=== PATIENT | male | born 2005 | race Hispanic/Latino ===

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

== ENCOUNTER 2024-01-25 16:41 | Emergency (ER) | payer OTHER ==
[~2024-01-25] VITALS: Ht 185.4 cm; Wt 108.9 kg
[2024-01-25 17:15] VITALS: BP 117/79; PULSE 58; RESP 16
[2024-01-25 17:34] LABS: BASOPHILS # (AUTO) 0.06 K/uL (0.00-0.20); BASOPHILS % (AUTO) 0.9 % (0.0-5.0); EOSINOPHILS # (AUTO) 0.27 K/uL (0.00-0.70); EOSINOPHILS % (AUTO) 4.2 % (0.0-8.0); HEMATOCRIT 50.5 % (42-54); IMMATURE GRANULOCYTE ABSOLUTE 0.02 K/uL (0-1); LYMPHOCYTES # (AUTO) 1.6 K/uL (1.0-4.8); LYMPHOCYTES % (AUTO) 25.3 % (21.0-51.0); MEAN CORPUSCULAR HEMOGLOBIN 29.4 pg (27.0-33.0); MEAN CORPUSCULAR HGB CONC 33.7 g/dL (32.0-36.0); MEAN CORPUSCULAR VOLUME 87.4 fL (80-100); MONOCYTES # (AUTO) 0.6 K/uL (0.1-1.0); MONOCYTES % (AUTO) 9.2 % (3.0-13.0); NEUTROPHILS # (AUTO) 3.9 K/uL (1.8-7.7); NEUTROPHILS % (AUTO) 60.1 % (40.0-77.0); PLATELET COUNT (AUTO) 302 K/uL (130-400); RED BLOOD CELL COUNT(AUTO) 5.78 MIL/uL (4.50-6.20); RED CELL DISTRIBUTION WIDTH 11.9 % (11.0-15.5); WHITE BLOOD COUNT (AUTO) 6.4 K/uL (4.8-10.8)
[2024-01-25 17:44] LABS: CREATININE 0.9 mg/dL (0.5-1.3); POTASSIUM 4.2 mmol/L (3.5-5.1)
[2024-01-25 17:46] LABS: APPEARANCE,URINE CLEAR (CLEAR); BILIRUBIN,URINE NEGATIVE (NEGATIVE); COLOR,URINE LIGHT-YELLOW (YELLOW); GLUCOSE, URINE (UA) NEGATIVE (NEGATIVE); KETONES,URINE NEGATIVE (NEGATIVE); LEUKOCYTE ESTERASE ,URINE NEGATIVE Leu/uL (NEGATIVE); NITRATE,URINE NEGATIVE (NEGATIVE); OCCULT BLOOD,URINE SMALL (NEGATIVE); PH,URINE 5.5 (5.0-8.0); PROTEIN,URINE NEGATIVE (NEGATIVE); UROBILINOGEN,URINE 0.2 mg/dL (0.2-1.0)
[2024-01-25 17:48] LABS: ALBUMIN 4.2 g/dL (3.5-5.0); BILIRUBIN,TOTAL 0.5 mg/dL (0.2-1.0); TOTAL PROTEIN, SERUM 8.3 g/dL (6.0-8.3)
[2024-01-25 17:55] LABS: BACTERIA,URINE Few /HPF (None Seen); SQUAMOUS EPITHELIAL CELL,UR Moderate /HPF (0-2); WBC,URINE None Seen /HPF (0-1)
[2024-01-25] MEDS ORDERED: AZIT250T9 PO (19:03)
[2024-01-25] MEDS ORDERED: ONDA22I IM (19:03)
== END 2024-01-25 20:11 | disposition home or self-care (01) ==
LOC: EDH 16:41
DX: K52.9 Noninfective gastroenteritis and colitis, unspecified (principal)
CPT/HCPCS: 36415; 74176; 80053; 81001; 83690; 85025

== ENCOUNTER 2024-02-25 16:31 | Emergency (ER) | payer OTHER ==
[~2024-02-25] VITALS: Ht 185.4 cm; Wt 108.9 kg
[~2024-02-25 16:31] MED LIST: AZIT250T9 PO; ONDA22I IM
[2024-02-25 18:55] LABS: BASOPHILS # (AUTO) 0.02 K/uL (0.00-0.20); BASOPHILS % (AUTO) 0.4 % (0.0-5.0); EOSINOPHILS # (AUTO) 0.07 K/uL (0.00-0.70); EOSINOPHILS % (AUTO) 1.3 % (0.0-8.0); HEMATOCRIT 46.6 % (42-54); IMMATURE GRANULOCYTE ABSOLUTE 0.01 K/uL (0-1); LYMPHOCYTES # (AUTO) 1.5 K/uL (1.0-4.8); LYMPHOCYTES % (AUTO) 27.4 % (21.0-51.0); MEAN CORPUSCULAR HEMOGLOBIN 29.7 pg (27.0-33.0); MEAN CORPUSCULAR HGB CONC 34.1 g/dL (32.0-36.0); MEAN CORPUSCULAR VOLUME 86.9 fL (80-100); MONOCYTES % (AUTO) 18.4 % (3.0-13.0); NEUTROPHILS # (AUTO) 2.8 K/uL (1.8-7.7); NEUTROPHILS % (AUTO) 52.3 % (40.0-77.0); PLATELET COUNT (AUTO) 270 K/uL (130-400); RED BLOOD CELL COUNT(AUTO) 5.36 MIL/uL (4.50-6.20); RED CELL DISTRIBUTION WIDTH 11.9 % (11.0-15.5); WHITE BLOOD COUNT (AUTO) 5.3 K/uL (4.8-10.8)
[2024-02-25 19:00] LABS: APPEARANCE,URINE CLEAR (CLEAR); BILIRUBIN,URINE NEGATIVE (NEGATIVE); COLOR,URINE YELLOW (YELLOW); GLUCOSE, URINE (UA) NEGATIVE (NEGATIVE); KETONES,URINE NEGATIVE (NEGATIVE); LEUKOCYTE ESTERASE ,URINE NEGATIVE Leu/uL (NEGATIVE); NITRATE,URINE NEGATIVE (NEGATIVE); OCCULT BLOOD,URINE NEGATIVE (NEGATIVE); PH,URINE 5.5 (5.0-8.0); PROTEIN,URINE 30 mg/dL (NEGATIVE); UROBILINOGEN,URINE 0.2 mg/dL (0.2-1.0)
[2024-02-25 19:05] LABS: CREATININE 0.9 mg/dL (0.5-1.3)
[2024-02-25 19:05] LABS: AMPHET/METH SCREEN,URINE NEGATIVE (NEGATIVE); BARBITURATE SCREEN, URINE NEGATIVE (NEGATIVE); BENZODIAZEPINES SCREEN,URINE NEGATIVE (NEGATIVE); CANNABINOID SCREEN,URINE POSITIVE (NEGATIVE); COCAINE SCREEN,URINE NEGATIVE (NEGATIVE); OPIATE SCREEN,URINE NEGATIVE (NEGATIVE); PHENCYCLIDINE SCREEN,URINE NEGATIVE (NEGATIVE)
[2024-02-25 19:08] LABS: ADD UA MICROSCOPIC YES
[2024-02-25 19:14] LABS: MUCUS,URINE FEW LPF (None Seen); SQUAMOUS EPITHELIAL CELL,UR FEW /HPF (0-2); WBC,URINE 0-1 /HPF (0-1)
[2024-02-25 19:24] LABS: ALBUMIN 4.3 g/dL (3.5-5.0); BILIRUBIN,TOTAL 0.4 mg/dL (0.2-1.0); TOTAL PROTEIN, SERUM 8.5 g/dL (6.0-8.3)
[2024-02-25] MEDS: 0.9%NACL 1000ML 2,397 ML IV STA (19:56)
[2024-02-25] MEDS: IBUPROFEN 800 MG TAB PO STA (19:57)
[2024-02-25 21:24] VITALS: BP 136/79; PULSE 92; RESP 20; O2SAT 99
== END 2024-02-25 21:25 | disposition home or self-care (01) ==
LOC: EDH 16:31
DX: M94.0 Chondrocostal junction syndrome [Tietze] (principal); F12.90 Cannabis use, unspecified, uncomplicated; R74.8 Abnormal levels of other serum enzymes; I10 Essential (primary) hypertension; Z79.899 Other long term (current) drug therapy; Z98.890 Other specified postprocedural states
CPT/HCPCS: 99285; 71045; 82550; 84484 ×2; 80053; 80305; 85025; 36415; 93005; 81001; J7030

== ENCOUNTER 2024-12-20 12:08 | Emergency (ER) | payer OTHER ==
[~2024-12-20] VITALS: Ht 185.4 cm; Wt 113.4 kg
[2024-12-20] MEDS: Solu-medROL 40MG VIAL IM ONE (12:45)
--- NOTE | 2024-12-20 12:53 | HMCIMG ---
CHEST 1VW HISTORY: Cough COMPARISON: 02/25/2024 FINDINGS: A frontal projection of the chest was obtained. No acute pulmonary infiltrates is seen. The heart is normal in size. Prominent interstitial markings are seen. Degenerative changes are seen IMPRESSION: 1. No acute pulmonary infiltrate is seen.
[2024-12-20 13:02] LABS: RAPID GROUP A STREP negative (NEGATIVE)
--- NOTE | 2024-12-20 13:05 | ERN ---
General Chief Complaint: Flu Symptoms Stated Complaint: CHEST PAIN,CONGESTION,MULTIPLE COMPLAINTS Time Seen by MD: 12:10 History of Present Illness Initial Comments 19-year-old male who presents for flu-like illness. Patient reports three or four days ago he had a fever, sore throat cough congestion. Fevers have subsided but he continues with sinus congestion and cough. He reports some pleuritic type chest discomfort earlier today due to the coughing. No respiratory distress. No other symptoms. Allergies: Coded Allergies: No Known Allergies (Unverified Allergy, Unknown, 01/25/24) Home Meds Active Scripts Ondansetron HCl (Zofran) 4 Mg/2 Ml Inj, 4 MG IM BID for 7 Days, #14 ML Prov:VIDHYA YOUSSEF 01/25/24 Azithromycin (Azithromycin) 250 Mg Tablet, 250 MG PO DAILY for 5 Days, #5 TAB Prov:VIDHYA YOUSSEF 01/25/24 Past Medical History Past Medical History: No Pertinent History Medical History Other: GASTRITIS, FATTY LIVER Past Surgical History: None ROS Dictation CONSTITUTIONAL: No chills, no fever, no weakness, no diaphoresis, no malaise. HEAD/FACE: No signs of trauma. EENT: No eye pain, no blurred vision, no tearing, no double vision, no ear pain, no ear discharge, no nose pain, no nasal congestion, no throat pain, no throat swelling, no mouth pain. RESPIRATORY: Cough CARDIOVASCULAR: No chest pain, no edema, no palpitations, no syncope. GASTROINTESTINAL/ABDOMINAL: No abdominal pain, no constipation, no diarrhea, no nausea, no vomiting. GENITOURINARY: No abnormal discharge, no dysuria, no frequent urination, no hematuria. No complaints of pain in the genitals. MUSCULOSKELETAL: No back pain, no gout, no joint pain, no joint swelling, no muscle pain, no muscle stiffness, no neck pain. INTEGUMENTARY: No change in color, no change in hair/nails, no dryness, no lesion, no lumps, no rash. NEUROLOGICAL/PSYCH: No anxiety, not depressed, no emotional problem, no headache, no numbness, no pre-existing deficit, no history of seizures, no tremors, no weakness. HEMATOLOGIC/LYMPHATIC: Not anemic, no history of blood clots, no apparent bleeding, no bruising, glands not swollen. All Systems Negative, Except as Noted. Physical Exam Physical Exam Dictation VITAL SIGNS: Reviewed. GENERAL APPEARANCE: Alert, oriented x3, no acute distress. HEAD AND FACE: Non-traumatic. EYES: PERRL, pink conjunctivas, eyelid no trauma, anterior chamber clear. EARS: Pinnas intact and no signs of trauma or erythema. Ear canals clear and no discharge. TMs no erythema. NOSE: No discharge, no bleeding. OROPHARYNX: Mouth normal, teeth no caries, tongue pink. Pharynx clear, no erythema. Tonsils no exudates, no abscesses noted. Mucous membrane moist. NECK: Supple, non-tender, no thyromegaly, no masses, no JVD, no bruits. BREAST: Deferred. CHEST: No tenderness, no crepitus, no paradoxical movement, no retractions. LUNGS: Clear, well-ventilated, symmetric, no rales, no wheezing, no rhonchi, no stridor, good breath sounds bilaterally. HEART: Regular rate, regular rhythm, no murmur, no gallops. VASCULAR: No peripheral edema. ABDOMEN: Soft, positive bowel sounds, nondistended, no guarding, nontender, no rebound, no masses no hepatomegaly, no splenomegaly, no Gunderson's sign, no hernias. RECTAL: Deferred. GENITAL: Deferred. NEUROLOGICAL: Normal speech, gross motor function intact, gross sensory function intact. MUSCULOSKELETAL: Neck nontender, full range of motion, back nontender, full range of motion. EXTREMITIES: Nontender, full range of motion. SKIN: Color pink, dry, no turgor, no rash, no lacerations, no abrasions, no contusions. LYMPHATICS: Deferred. Results Laboratory and Microbiology Lab and Micro Result Laboratory Tests Test 12/20/24 12:25 Influenza Type A Antigen Negative For Type A Influenza Type B Antigen Negative For Type B SARS-CoV-2 Antigen (Rapid) PRESUMPTIVE NEGATIVE Group A Streptococcus Rapid negative (NEGATIVE) MDM CC: Flu-like illness cough congestion Historian: Patient Comorbidities: None Limitations by social determinants of health: None Differential diagnosis: Viral URI, pneumonia, flu, other. Vital signs: Stable, remained stable in the ER. Clinical exam is unremarkable. Patient was nontoxic. He was some rhinorrhea and congestion. Clear lungs. Pulse ox normal. No respiratory distress. No clinical signs of dehydration. CXR (independently interpreted by me): No cardiomegaly focal infiltrates or abnormalities. Flu and SARS negative Symptoms most consistent with a viral upper respiratory infection. Afebrile. No signs of pneumonia. No signs of significant disease. Plan: We will DC with OTC medications PCP follow up as needed. ED Course Orders Procedure Category Date Status Time Chest 1vw RAD 12/20/24 Resulted 12:27 Methylprednisolone PHA 12/20/24 Complete Succ 40mg (Solu-Medro 12:30 Covid19 (Sars Antigen LAB 12/20/24 Complete Rapid) 12:27 Influenza Type A & B, LAB 12/20/24 Complete Rapid 12:27 Rapid (Group A Strep) LAB 12/20/24 Complete 12:27 Current Medications Medications (Trade) Dose Ordered Sig/Lulu Route PRN Reason Start Time Stop Time Status Last Admin Dose Admin Methylprednisolone Sodium Succinate (Solu-medROL 40MG) 40 mg ONCE ONCE IM 12/20/24 12:30 12/20/24 12:31 DC 12/20/24 12:45 Vital Signs Date Time Temp Pulse Resp B/P (MAP) Pulse Ox O2 Delivery O2 Flow Rate FiO2 12/20/24 12:26 99.0 84 20 153/94 96 Room Air 0 DX & DISP Disposition: Discharge Departure Impression: Primary Impression: Viral URI Condition: Stable Additional Instructions: Your symptoms are consistent with a viral upper respiratory infection, or the common cold. Your flu and COVID swabs are negative. Your chest x-ray is clear. I recommend he use [id number] cough and cold medications such as Mucinex or DayQuil. Drink plenty of liquids. Please follow up with the primary doctor for symptoms do not improve. Referrals: SANDRA CARRASCO NP (PCP) JAY PATEL DO Dec 20, 2024 13:05
[2024-12-20 13:11] LABS: COVID19 (SARS ANTIGEN RAPID) PRESUMPTIVE NEGATIVE (NEGATIVE)
[2024-12-20 13:12] LABS: INFLUENZA TYPE A Negative For Type A (NEGATIVE); INFLUENZA TYPE B Negative For Type B (NEGATIVE)
[2024-12-20 13:40] VITALS: BP 147/89; PULSE 80; RESP 20; TEMP 99; O2SAT 96
== END 2024-12-20 13:45 | disposition home or self-care (01) ==
LOC: EDH 12:08
DX: J06.9 Acute upper respiratory infection, unspecified (principal); B97.89 Other viral agents as the cause of diseases classified elsewhere; Z20.822 Contact with and (suspected) exposure to COVID-19; Z79.899 Other long term (current) drug therapy
CPT/HCPCS: 99284; 71045; 87426; 87880; 87804 ×2; 96372; J2919

== ENCOUNTER 2025-01-26 18:05 | Emergency (ER) | payer OTHER ==
[~2025-01-26] VITALS: Ht 185.4 cm; Wt 113.4 kg
[2025-01-26] MEDS: HYDROcodone/APAP 5/325 1 TAB TABLET PO ONE (18:47)
--- NOTE | 2025-01-26 19:09 | HMCIMG ---
LEFT ANKLE RADIOGRAPHS - 3 VIEWS INDICATION: Pain COMPARISON: None FINDINGS: AP, lateral, and oblique views. No fracture or dislocation identified. The talar dome is intact. Ankle mortise and tibial plafond are well maintained. No significant joint effusion is present. No radiopaque foreign body noted. IMPRESSION: No evidence for fracture or dislocation.
--- NOTE | 2025-01-26 19:28 | HMCIMG ---
LEFT TIBIA AND FIBULA RADIOGRAPHS - 2 VIEWS INDICATION: Pain COMPARISON: None. FINDINGS: AP and lateral views. No evidence for acute fracture or dislocation. No radiopaque foreign body noted. IMPRESSION: No evidence for fracture or dislocation.
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
[2025-01-26 19:51] VITALS: BP 132/71; PULSE 70; RESP 17; TEMP 98.3; O2SAT 96
== END 2025-01-26 20:02 | disposition home or self-care (01) ==
LOC: EDH 18:05
DX: S90.02XA Contusion of left ankle, initial encounter (principal); S80.12XA Contusion of left lower leg, initial encounter; R51.9 Headache, unspecified; Z79.899 Other long term (current) drug therapy; V43.52XA Car driver injured in collision with other type car in traffic accident, initial encounter; Y93.89 Activity, other specified; Y92.488 Other paved roadways as the place of occurrence of the external cause; Y99.8 Other external cause status
CPT/HCPCS: 70450; 73590; 73610; 99284